=== PATIENT | female | born 1950 | race Caucasian/White ===

== ENCOUNTER 2019-11-14 09:10 | Inpatient (IN) | payer BC ==
[2019-11-02 13:14] VITALS: BMI 21.3
--- NOTE | 2019-11-14 07:57 | HP ---
Satellite [facility] - Chief Complaint Chief Complaint: right hip pain - Past Medical History Allergies/Adverse Reactions: Allergies Allergy/AdvReac Type Severity Reaction Status Date / Time Latex, Natural Rubber Allergy Severe Difficulty Verified 11/02/19 13:01 Breathing No Known Drug Allergies Allergy Verified 11/02/19 13:01 - Current Medications Current Medications: Home Medications Medication Instructions Recorded Acetaminophen [Tylenol Arthritis] 650 mg PO BID 11/02/19 Beclomethasone Dipropionate [Qvar] 2 gm IH BID 11/02/19 Fluticasone Propionate 16 gm NS BID 11/02/19 Gabapentin 100 mg PO BID 11/02/19 Theophylline Anhydrous [Steve-24] 400 mg PO DAILY 11/02/19 Satellite Physical Exam - Physical Examination General Appearance: Well Nourished, Well Developed, Alert & Oriented x3 ENT: Clear Lung: Normal air movement Extremities: Other (right hip- + ttp, decr rom ,nvi, xrays show grade 4 hip djd) Neurological: Intact, Alert, Oriented Satellite Impression/Plan - Impression/Plan Impression: right hip djd Operative Procedure: right arelis thr Date to be Performed: 11/14/19
[~2019-11-14 09:10] MED LIST: CEFAZOLIN 2 GM in DEXTROSE 5%-WATER - 50 ML IVPB ONE; TRANEXAMIC ACID 1000 MG/10 ML VIAL IVPUSH ONE
[2019-11-14] MEDS: CELECOXIB 200 MG CAPSULE PO ONE (09:50)
[2019-11-14] MEDS ORDERED: ceFAZolin SODIUM 1 GM VIAL ONE ×2 (10:14→11:27)
[2019-11-14] MEDS ORDERED: VANCOMYCIN 1,000 MG VIAL (RESTRICTED TO ID ONLY) ONE (10:14)
[2019-11-14] MEDS ORDERED: BUPIVACAINE HCL/PF 0.5% (5MG/ML) 10 ML VIAL ONE (10:29)
[2019-11-14] MEDS ORDERED: MIDAZOLAM HCL 2 MG/2 ML SINGLE DOSE VIAL ONE (10:30)
[2019-11-14] MEDS ORDERED: DEXAMETHASONE SOD PHOSPHATE/PF 10 MG/ML SDV ONE (10:30)
[2019-11-14] MEDS ORDERED: PROPOFOL 20 ML ONE ×2 (10:30→12:02)
[2019-11-14] MEDS ORDERED: BUPIVACAINE HCL/PF 0.5% (5 MG/ML) 30 ML VIAL IJ ONE (10:30)
[2019-11-14] MEDS ORDERED: MAGNESIUM HYDROX 2400MG/30ML ORAL SUSPENSION 30 ML CUP PO PRN (11:12)
[2019-11-14] MEDS ORDERED: ONDANSETRON 4 MG/2 ML VIAL IVPUSH PRN (11:12)
[2019-11-14] MEDS ORDERED: MAG HYDROX/AL HYDROX/SIMETH 30 ML UNIT-DOSE CUP PO PRN (11:12)
[2019-11-14] MEDS ORDERED: LACTATED RINGERS SOLUTION 1,000 ML IV SCH (11:15)
[2019-11-14] MEDS ORDERED: TRANEXAMIC ACID 1000 MG/10 ML VIAL ONE (11:27)
[2019-11-14] MEDS ORDERED: VANCOMYCIN 1,000 MG VIAL (RESTRICTED TO ID ONLY) IVPB ONE (12:01)
--- NOTE | 2019-11-14 14:18 | OP ---
Operative Note - Note: Operative Date: 11/14/19 (cipriano) Pre-Operative Diagnosis: right hip djd Operation: right arelis thr Post-Operative Diagnosis: Same as Pre-op Surgeon: Ray Sparks Trial Consultant: Yousif Ramirez Anesthesiologist/LICENSE DISTRIBUTOR: Todd Dumont Anesthesia: Spinal, Local Specimens Removed: femoral head Estimated Blood Loss (mls): 100
--- NOTE | 2019-11-14 14:52 | OP ---
DATE OF OPERATION: 11/14/2019 PREOPERATIVE DIAGNOSIS: Degenerative joint disease, right hip. POSTOPERATIVE DIAGNOSIS: Degenerative joint disease, right hip. PROCEDURE: Right total hip replacement with robotic-assisted navigation (MAKOplasty). SURGICAL ATTENDING: Ray Sparks MD SCHOOL OFFICE ASSISTANT: KESHA Oquendo ANESTHESIA: Regional and spinal. CLOSURE: Latexo total hip system with a No. 7 Accolade II femoral press fit stem, a 52 Trident II press fit acetabulum with 2 screws, a standard 36-mm metallic head, No. 1 Vicryl fascia, 0 and 2-0 for subcutaneous, and a ZipLine for the skin with skin glue. ESTIMATED BLOOD LOSS: Under 100 mL. COMPLICATIONS: None. CONDITION: To recovery room in stable condition. DESCRIPTION OF PROCEDURE: Patient was taken to the operating room on October____2019. Regional and spinal sedation were administered by the anesthesiologist. IV Kefzol and TXA were administered prophylactically prior to the case. Patient was placed in the lateral decubitus position with all prominences well padded. Right hip area was prepped and draped in the usual sterile fashion. Three parallel threaded pins were drilled between the 2 tables of the iliac crest through 3 small stab incisions. This was done about a few centimeters up from the ASIS. Two of these 3 pins were fashioned to the navigation array. Next, a 12-cm curved longitudinal incision over the posterolateral aspect of the hip was incised. Hemostasis achieved with Bovie cautery. Dissection was carried down to the level of the fascia, which was opened the entire length of the incision. The fibers of the gluteus solange were spread exposing the greater trochanter. Charnley retractor was placed , and care was taken not to impale the sciatic nerve. The checkpoint was placed in the greater trochanter. The checkpoint and the checkpoint over the inferior pole of the patella were registered with the navigation device. The short external rotators were detached off the insertion of the greater trochanter and peeked off the capsule. A posterior capsulectomy was then performed. The hip was dislocated. The femoral head was osteotomized at the appropriate level as directed by the navigation device. Anterior, posterior acetabular retractors were applied. Circumferential debridement of the labrum was performed exposing the rim. The acetabulum was registered with the navigation device first in gross fashion with 3 points, anterior, posterior, and superiorly followed by multiple points in and around the acetabulum. Confirmation of excellent registration was confirmed by "popping the bubbles." The hip was then reamed with a 52 reamer to the appropriate depth as directed by the navigation device and the robot achieving excellent bleeding surface hemispherical cup. A real 52 Trident II acetabulum cup was then malleted into place using 40 degrees of inclination and 23 degrees of aversion achieving excellent coverage and stability. Adjuvant fixation was performed by putting 1 anterior, 1 posterior screw. A polyethylene liner accepting a 36-mm head with a 10-degree lip in the superior posterior quadrant was then clipped into place. Next, our attention directed to the femur. The proximal femur was prepared by using a box chisel, a canal finder followed by serial broachers until a No. 7 achieved excellent stability and fit. A trial reduction with a standard 36-mm head achieved excellent stability in extension and external rotation in marked flexion, in 90 degrees of flexion with adduction and internal rotation with a positive hang test and negative telescoping. Limb lengths were judged to be a few millimeters longer than the contralateral side, which was accepted secondary some disease on the contralateral side. The trial femoral component was removed. The real stem was then malleted into place. A 36-mm metallic head was then cold welded, and the hip was reduced. Range of motion, stability, and limb lengths were as described earlier. The hip was irrigated out with copious amounts of irrigation. Vancomycin powder was placed in the wound. The fascia was then closed using No. 1, 0 and 2-0 for subcutaneous, and a zip tie was then used for the skin with skin glue followed by Aquacel dressing. All checkpoints and pins were then removed. The acetabular pins were irrigated and closed with 4-0 undyed Vicryl and glue. Sterile Aquacel dressing was applied to both. Patient was placed in the supine position. Bilateral SCDs and an abduction pillow were applied. Patient was awakened from anesthesia and transferred to recovery in stable condition. No complications. Estimated blood loss less than 100 mL. Mariaa [id number]
[2019-11-14] MEDS ORDERED: traMADol HCL 50 MG TABLET PO PRN (16:27)
[2019-11-14] MEDS ORDERED: oxyCODONE HCL 5 MG TABLET PO PRN (16:27)
[2019-11-14] MEDS: ACETAMINOPHEN 325 MG TABLET (FP) PO SCH (16:51)
[2019-11-14] MEDS: oxyCODONE HCL 5 MG TABLET PO PRN ×2 (16:52→21:44)
[2019-11-14] MEDS: CEFAZOLIN 2 GM/D5W 2 GM/50 ML ML IVPB SCH (18:15)
[2019-11-14] MEDS: GABAPENTIN 100 MG CAPSULE PO SCH (21:42)
[2019-11-14] MEDS: FLUTICASONE PROP 0.05% 16 GM NASAL SPRAY NS SCH (21:42)
[2019-11-14] MEDS: oxyCODONE HCL 10 MG SUSTAINED ACTING TABLET PO SCH (21:43)
[2019-11-14] MEDS: SENNOSIDES/DOCUSATE COMBO (SENNA PLUS) TABLET (UD) PO SCH (21:43)
[2019-11-14] MEDS ORDERED: BECLOMETHASONE DIPROPIONATE IH SCH (22:00)
[2019-11-15] MEDS: oxyCODONE HCL 5 MG TABLET PO PRN ×3 (01:29→16:58)
[2019-11-15] MEDS: CEFAZOLIN 2 GM/D5W 2 GM/50 ML ML IVPB SCH (03:29)
[2019-11-15] MEDS: ACETAMINOPHEN 325 MG TABLET (FP) PO SCH ×4 (03:36→22:01)
[2019-11-15 07:39] LABS: HEMATOCRIT 32.4 % (32.4-45.2); HEMOGLOBIN 10.7 GM/dl (10.7-15.3); MCH 28.9 pg (25.7-33.7); MCHC 32.9 g/dl (32.0-36.0); MEAN CELL VOLUME 87.7 fl (80-96); MEAN PLT VOLUME 7.4 fl (7.5-11.1); PLATELET COUNT 358 K/MM3 (134-434); RBC 3.69 M/mm3 (3.60-5.2); RDW 13.2 % (11.6-15.6); WHITE BLOOD COUNT 6.5 K/mm3 (4.0-10.8)
[2019-11-15] MEDS: ASPIRIN 325 MG TABLET PO SCH (08:00)
[2019-11-15] MEDS: THEOPHYLLINE ANHYDROUS 100 MG CAP.ER.24H PO SCH (09:00)
[2019-11-15] MEDS: SENNOSIDES/DOCUSATE COMBO (SENNA PLUS) TABLET (UD) PO SCH ×2 (09:30→22:00)
--- NOTE | 2019-11-15 09:33 | PN ---
Progress Note (short form) - Note Progress Note: Ortho Pt seen and examined s/p right arelis thr pod #1 Selected Entries 11/15/19 06:00 Temperature 98.4 F Pulse Rate 68 Respiratory 20 Rate Blood Pressure 126/76 Laboratory Tests 11/15/19 06:50 WBC 6.5 Hgb 10.7 Hct 32.4 Plt Count 358 dressing c/d/i, calf soft, nt nvi a/p PT hip precautions dvt ppx pain control d/c planning
[2019-11-15] MEDS ORDERED: PT OWN MED DRAWER 7, Y5N ONE ×2 (09:38→21:10)
[2019-11-15] MEDS: GABAPENTIN 100 MG CAPSULE PO SCH ×2 (10:00→22:01)
[2019-11-15] MEDS ORDERED: THEOPHYLLINE ANHYDROUS 400 MG PO SCH (10:00)
[2019-11-15] MEDS: PANTOPRAZOLE 40 MG TABLET PO SCH (10:10)
[2019-11-15] MEDS: oxyCODONE HCL 10 MG SUSTAINED ACTING TABLET PO SCH ×2 (10:15→22:00)
[2019-11-15] MEDS: MULTIVITAMINS (DAILY MVI) TABLET (FP) PO SCH (10:15)
[2019-11-15] MEDS: FLUTICASONE PROP 0.05% 16 GM NASAL SPRAY NS SCH ×2 (10:25→22:29)
--- NOTE | 2019-11-15 13:29 | PN ---
Progress Note (short form) - Note Progress Note: POD #1 s/p R THR under spinal anesthesia/ paravertebral block. Patient doing well, mild nausea controlled with zofran, pain tolerable. All questions answered. Physical therapy tolerated.
[2019-11-16] MEDS: ACETAMINOPHEN 325 MG TABLET (FP) PO SCH ×2 (05:22→11:01)
--- NOTE | 2019-11-16 06:59 | PN ---
Progress Note (short form) - Note Progress Note: Ortho Pt seen and examined s/p right arelis thr pod #2 Selected Entries 11/16/19 06:00 Temperature 98.1 F Pulse Rate 96 H Respiratory 18 Rate Blood Pressure 111/58 L dressing c/d/i, calf soft, nt nvi cbc pending a/p PT hip precautions dvt ppx pain control d/c home today f/u in 1 week
--- NOTE | 2019-11-16 07:00 | DS ---
Physical Examination Vital Signs: Vital Signs Temperature 98.1 F 11/16/19 06:00 Pulse Rate 96 H 11/16/19 06:00 Respiratory Rate 18 11/16/19 06:00 Blood Pressure 111/58 L 11/16/19 06:00 O2 Sat by Pulse Oximetry (%) 95 11/16/19 01:36 Labs: CBC, BMP 11/15/19 06:50 Discharge Summary Problems reviewed: Yes Reason For Visit: OSTEOARTHRITIS Procedures: Principal: right thr Hospital Course: admitted for elective right arelis thr, post-op per protocol, stable for d/c Condition: Good - Instructions Diet, Activity, Other Instructions: Post-op Instructions-Total Hip Replacement Call the office for a follow-up appointment in 1 week - [phone] Aspirin 325mg daily for 6 weeks. Pain medication was sent into your pharmacy. Apply Graduated Compression Stockings (TEDs) to both lower extremities- remove daily for hygiene ONLY Apply Sequential Compression Device (SCDs) to both Lower extremities remove for PT and hygiene ONLY Apply cold packs to affected area for 15 minutes every 2 hours. Physical Therapist will come to your home for the first 5 days. You will be set up with outpatient PT at your first post-operative visit. Patient may ambulate as tolerated-encourage self care (at least every 2-3 hours while awake) with walker or cane Maintain Aquacel (waterproof) dressing to operative wound (will be removed by surgeon at first office visit) Shower with Aquacel dressing in place-if Aquacel integrity compromised, remove and apply dry sterile dressing and notify Orthopedist. DO NOT SHOWER unless Orthopedists approves without Aquacel dressing CONTACT THE OFFICE FOR ANY CHANGE IN YOUR CONDITION (for example-fever greater than 102 degrees, excessive bleeding from operative site, purulent drainage, severe swelling or pain) GO TO THE EMERGENCY ROOM IF THERE IS A MEDICAL EMERGENCY Hip Precautions: * Keep a rolled towel under affected heel while in bed or chair (to keep knee in extension) * Dependent upon approach: * Posterior - do not cross legs; do not sit on low chairs or toilets. * If you have any questions, please do not hesitate to call the office - . Referrals: Ray Sparks MD [Staff Physician] - - Home Medications Comprehensive Discharge Medication List: Ambulatory Orders Acetaminophen [Tylenol Arthritis] 650 mg PO BID 11/02/19 Beclomethasone Dipropionate [Qvar] 2 gm IH BID 11/02/19 Fluticasone Propionate 16 gm NS BID 11/02/19 Gabapentin 100 mg PO BID 11/02/19 Theophylline Anhydrous [Steve-24] 400 mg PO DAILY 11/02/19 Oxycodone HCl/Acetaminophen [Percocet 5-325 mg Tablet -] 1 - 2 tab PO Q6H #50 tab MDD 8 11/14/19
[2019-11-16 08:11] LABS: HEMATOCRIT 31.4 % (32.4-45.2); HEMOGLOBIN 10.9 GM/dl (10.7-15.3); MCH 30.4 pg (25.7-33.7); MCHC 34.7 g/dl (32.0-36.0); MEAN CELL VOLUME 87.4 fl (80-96); MEAN PLT VOLUME 7.8 fl (7.5-11.1); PLATELET COUNT 317 K/MM3 (134-434); RBC 3.59 M/mm3 (3.60-5.2); RDW 13.4 % (11.6-15.6); WHITE BLOOD COUNT 8.1 K/mm3 (4.0-10.8)
[2019-11-16] MEDS: ASPIRIN 325 MG TABLET PO SCH (08:31)
[2019-11-16] MEDS: CELECOXIB 200 MG CAPSULE PO ONE (08:32)
[2019-11-16] MEDS ORDERED: PT OWN MED DRAWER 7, Y5N ONE (09:16)
[2019-11-16] MEDS: SENNOSIDES/DOCUSATE COMBO (SENNA PLUS) TABLET (UD) PO SCH (09:24)
[2019-11-16] MEDS: GABAPENTIN 100 MG CAPSULE PO SCH (09:24)
[2019-11-16] MEDS: THEOPHYLLINE ANHYDROUS 100 MG CAP.ER.24H PO SCH (09:24)
[2019-11-16] MEDS: MULTIVITAMINS (DAILY MVI) TABLET (FP) PO SCH (09:25)
[2019-11-16] MEDS: oxyCODONE HCL 10 MG SUSTAINED ACTING TABLET PO SCH (09:25)
[2019-11-16] MEDS: PANTOPRAZOLE 40 MG TABLET PO SCH (09:25)
[2019-11-16] MEDS: FLUTICASONE PROP 0.05% 16 GM NASAL SPRAY NS SCH (09:25)
[2019-11-16 09:52] VITALS: BP 113/51; PULSE 86; TEMP 98.6
--- NOTE | 2019-11-16 15:23 | PATH ---
Surgical Pathology Report Patient Name: MYRIAM PAULA Med. Rec. #: [id number] /Age/Gender: 1950 (Age: 69) / F Account: <[id number]> Location: [facility] Taken: 11/14/2019 Received: 11/14/2019 Reported: 11/16/2019 Physicians: Ray Sparks M.D. Specimen(s) Received RIGHT FEMORAL HEAD Clinical History Osteoarthritis right hip Final Diagnosis FEMORAL HEAD, RIGHT, TOTAL HIP REPLACEMENT: DEGENERATIVE JOINT DISEASE. Electronically Signed Cassie Kaur M.D. Gross Description Received in formalin, labeled "right femoral head," is a 4.4 x 4.4 x 3.5 cm. femoral head with a 0.7 cm in length portion of femoral neck attached. The margin of resection is smooth. There is a 3.2 cm greatest dimension area of eburnation present. The remaining articular surface is weston-yellow and diffusely granular. The underlying trabecular bone is yellow and hard. A dental detail representative section is submitted in one cassette, following decalcification. 11/15/[address] [facility]
== END 2019-11-16 13:08 | disposition home health service (06) | DRG 470 ==
LOC: FM/S 09:10 → FASUSAT 09:10 → EDSTATUS 12:30 → FM/S 11-15 14:03 → UNDOADMIN 11-15 14:29
PROVIDERS: ADMIT Orthopaedic Surgery; ATTEND Orthopaedic Surgery
PROC: 8E0Y0CZ Robotic Assisted Procedure of Lower Extremity, Open Approach (ICD-10-PCS; 2019-11-14)
PROC: 0SR90JA Replacement of Right Hip Joint with Synthetic Substitute, Uncemented, Open Approach (ICD-10-PCS; principal; 2019-11-14 11:27)
DX: M16.11 Unilateral primary osteoarthritis, right hip (principal)
CPT/HCPCS: 36415; 73502-TC-RT-FY; 85027; 94760; 97116-GP; 97163-GP

== ENCOUNTER 2021-06-21 17:42 | Emergency (ER) | payer BC ==
[2021-06-21 18:24] VITALS: TEMP 97.9
[2021-06-21] MEDS ORDERED: ACETAMINOPHEN 325 MG TABLET (FP) PO ONE (18:44)
[2021-06-21] MEDS ORDERED: ACETAMINOPHEN 325 MG TABLET (FP) ONE (20:38)
[2021-06-21 21:23] VITALS: BP 158/89; PULSE 87
== END 2021-06-21 21:59 | disposition home or self-care (01) ==
LOC: JER 17:42
DX: S01.319A Laceration without foreign body of unspecified ear, initial encounter (principal); W10.9XXA Fall (on) (from) unspecified stairs and steps, initial encounter; Y92.9 Unspecified place or not applicable
CPT/HCPCS: 70450-TC; 72125-TC; 99284-25